=== PATIENT | female | born 1985 | race Caucasian/White ===

== ENCOUNTER → 2018-11-26 | Outpatient (CLI) | payer SELFPAY ==
[2018-11-26 10:02] LABS: HEMATOCRIT 39.7 % (37.0-47.0); HEMOGLOBIN 12.5 g/dL (12.5-16.0); MEAN PLATELET VOLUME 11.9 fl (7.4-10.4); RED BLOOD COUNT 4.86 M/mm3 (4.10-5.30); RED CELL DISTRIBUTION WIDTH 15.3 % (11.5-14.5); WHITE BLOOD COUNT 6.6 K/mm3 (4.8-10.8)
[2018-11-27 00:43] LABS: T3 FREE 2.1 pg/mL (1.7-3.7)
== END ==
LOC: RAD 09:23
PROVIDERS: Family Medicine
DX: E07.9 Disorder of thyroid, unspecified (principal); R22.1 Localized swelling, mass and lump, neck; E03.9 Hypothyroidism, unspecified

== ENCOUNTER → 2019-02-19 | Outpatient (CLI) | payer SELFPAY | LOC: LAB 08:46 | PROVIDERS: Nurse Practitioner Family | DX: E03.8 Other specified hypothyroidism (principal); E06.3 Autoimmune thyroiditis; N94.3 Premenstrual tension syndrome; Z86.69 Personal history of other diseases of the nervous system and sense organs ==

== ENCOUNTER → 2019-04-28 | Outpatient (CLI) | payer SELFPAY | LOC: LAB 09:50 | DX: E03.9 Hypothyroidism, unspecified (principal); E06.3 Autoimmune thyroiditis ==

== ENCOUNTER → 2020-06-07 | Outpatient (CLI) | payer SELFPAY ==
[2020-06-07 11:44] LABS: EOS # 0.1 (0.04-0.40); EOS % 0.6 % (1.0-5.0); HEMATOCRIT 46.7 % (37.0-47.0); HEMOGLOBIN 15.2 g/dL (12.5-16.0); LYMPH# 1.1 (1.50-4.00); MEAN CELL VOLUME 91 fl (78-100); MEAN CORPUSCULAR HEMOGLOBIN 30 pg (27-31); MEAN CORPUSCULAR HGB CONC 33 g/dL (33-37); MEAN PLATELET VOLUME 11.9 fl (7.4-10.4); MONO # 0.9 (0.20-0.80); NEU # 6.9 (1.40-6.50); PLATELET COUNT 273 K/mm3 (130-400); RED BLOOD COUNT 5.14 M/mm3 (4.10-5.30); RED CELL DISTRIBUTION WIDTH 14.3 % (11.5-14.5)
== END ==
LOC: LAB 11:10
PROVIDERS: Family Medicine
DX: E03.9 Hypothyroidism, unspecified (principal); H83.8X3 Other specified diseases of inner ear, bilateral; R79.0 Abnormal level of blood mineral; R79.89 Other specified abnormal findings of blood chemistry

== ENCOUNTER → 2021-08-07 | Outpatient (CLI) | payer SELFPAY | LOC: LAB 17:16 | DX: U07.1 COVID-19 (principal) ==

== ENCOUNTER → 2022-06-21 | Outpatient (CLI) | payer SELFPAY | LOC: RAD 09:25 | DX: M25.571 Pain in right ankle and joints of right foot (principal) ==